=== PATIENT | male | born 1970 | race Caucasian/White ===

== ENCOUNTER 2019-03-17 02:40 | Inpatient (IN) | payer MEDICAID, OTHER ==
[2019-03-17] VITALS (62 sets, daily range): BP systolic 86–129; BP diastolic 39–99
[~2019-03-17] VITALS: Ht 167.6 cm; Wt 61.7 kg
[2019-03-17] MEDS ORDERED: ONDANSETRON HCL 4MG/2ML INJ ONE (03:01)
[2019-03-17] MEDS ORDERED: MORPHINE SULFATE 4 MG/ML CPJ (NOT FOR IM USE) IV STA (03:04)
[2019-03-17] MEDS ORDERED: ONDANSETRON HCL 4MG/2ML INJ IV STA (03:04)
[2019-03-17] MEDS ORDERED: SODIUM CHLORIDE 0.9% 1,000 ML IV ONE ×2 (03:04→04:00)
[2019-03-17 03:27] LABS: BASOPHILS % 0.5 % (0.0-2.0); LYMPHOCYTES % 12.3 % (20.0-50.0); MEAN CORPUSCULAR HEMOGLOBIN 25.3 pg (28.0-32.0); MEAN CORPUSCULAR VOLUME 85.6 fL (80.0-94.0); MEAN PLATELET VOLUME 7.9 fl (7.4-10.4); MONOCYTES % 8.7 % (2.0-8.0); NEUTROPHILS % 78.5 % (40.0-76.0); PLATELET 267 x1000/uL (130-400); RED BLOOD CELL COUNT 1.86 mill/uL (4.7-6.1); RED CELL DISTRIBUTION WIDTH 22.2 % (11.6-14.6)
[2019-03-17 03:32] LABS: HEMATOCRIT. 15.9 % (42.0-52.0); HEMOGLOBIN. 4.7 g/dL (14.0-18.0); INR 1.4; PARTIAL THROMBOPLASTIN TIME 27.5 sec (23.4-31.0); PROTHROMBIN TIME 14.5 sec (9.6-11.0)
[2019-03-17 03:33] LABS: CHLORIDE 91 mEq/L (98-107)
[2019-03-17 03:38] LABS: ETHANOL BLOOD < 10 mg/dL
[2019-03-17 03:57] LABS: CLARITY URINE CLEAR (CLEAR); COLOR URINE YELLOW (YELLOW); KETONES URINE 1+ (NEGATIVE); LEUKOCYTE ESTERASE URINE NEGATIVE (NEGATIVE); NITRITE URINE NEGATIVE (NEGATIVE); OCCULT BLOOD URINE NEGATIVE (NEGATIVE); PROTEIN URINE NEGATIVE (NEGATIVE); SPECIFIC GRAVITY URINE 1.022 (1.005-1.030); UROBILINOGEN URINE 0.2 E.U./dL (0.2-1.0)
[2019-03-17 04:07] LABS: *AMPHETAMINES SCREEN URINE NEGATIVE (NEGATIVE); *BARBITURATES SCREEN URINE NEGATIVE (NEGATIVE); CANNABINOID URINE SCREEN NEGATIVE (NEGATIVE)
[2019-03-17 04:08] LABS: *BENZODIAZEPINES SCREEN URINE NEGATIVE (NEGATIVE); *COCAINE SCREEN URINE NEGATIVE (NEGATIVE); METHADONE URINE SCREEN NEGATIVE (NEGATIVE); OPIATES URINE SCREEN NEGATIVE (NEGATIVE); PHENCYCLIDINE URINE SCREEN NEGATIVE (NEGATIVE)
[2019-03-17] MEDS ORDERED: INSULIN REGULAR (DRIP) 100 UNITS in SODIUM CHLORIDE 0.9% 99 ML IV SCH ×3 (04:15→08:51)
[2019-03-17] MEDS ORDERED: CEFTRIAXONE 1 G PREMIX 50 ML IV ONE (06:30)
[2019-03-17 06:50] LABS: PLATELET ESTIMATE NORMAL
[2019-03-17] MEDS ORDERED: SODIUM CHLORIDE 0.9% 1,000 ML IV SCH (08:51)
[2019-03-17] MEDS ORDERED: GUAIFENESIN 200MG/10ML SUGAR FREE UDC PO PRN (09:00)
[2019-03-17] MEDS ORDERED: LORAZEPAM 2MG/ML CPJ IV PRN (09:00)
[2019-03-17] MEDS ORDERED: ONDANSETRON HCL 4MG/2ML INJ IV PRN (09:00)
[2019-03-17] MEDS ORDERED: MAGNESIUM/ALUMINUM HYDROXIDE/SIMETHICONE 30ML UDC PO PRN (09:00)
[2019-03-17] MEDS ORDERED: CLONIDINE 0.1MG TABLET PO PRN (09:00)
[2019-03-17] MEDS ORDERED: DOCUSATE SODIUM 100MG CAPSULE PO PRN (09:00)
[2019-03-17] MEDS ORDERED: DEXTROSE 50% WATER 50ML SYRINGE IV PRN ×3 (09:00→19:30)
[2019-03-17] MEDS ORDERED: ACETAMINOPHEN 650MG SUPP PR PRN (09:00)
[2019-03-17] MEDS ORDERED: IPRATROPIUM/ALBUTEROL 0.5-3(2.5)MG/3ML NEB HHN PRN (09:00)
[2019-03-17] MEDS ORDERED: METF-414 PO (09:03)
[2019-03-17] MEDS ORDERED: PANT40SU PO (09:03)
[2019-03-17] MEDS ORDERED: FOLI-43 PO (09:03)
[2019-03-17] MEDS ORDERED: PROP10TA10 PO (09:03)
[2019-03-17] MEDS: BLOOD SUGAR DIAGNOSTIC STRIP TEST SCH ×10 (09:30→21:25)
[2019-03-17] MEDS ORDERED: OCTREOTIDE 1,000 MCG in SODIUM CHLORIDE 0.9% 98 ML IV SCH (10:00)
[2019-03-17] MEDS: PANTOPRAZOLE 80 MG in SODIUM CHLORIDE 0.9% 100 ML IV SCH ×2 (10:51→21:40)
[2019-03-17] MEDS ORDERED: MVI, ADULT NO.1 10 ML, FOLIC ACID 1 MG, THIAMINE HCL 100 MG in SODIUM CHLORIDE 0.9% 1,0... IV SCH ×4 (11:00)
[2019-03-17 11:42] LABS: CHLORIDE 105 mEq/L (98-107)
[2019-03-17 11:49] LABS: PHOSPHORUS 1.4 mg/dL (2.5-4.9)
[2019-03-17] MEDS ORDERED: DEXT 5%/0.9% NACL 1,000 ML IV SCH (12:30)
[2019-03-17 12:56] LABS: HEPATITIS B SURFACE ANTIGEN NEGATIVE
[2019-03-17 13:26] LABS: HEPATITIS A AB IGM NEGATIVE (NEGATIVE)
[2019-03-17] MEDS ORDERED: POTASSIUM PHOS,M-BASIC-D-BASIC 30 MMOL in DEXT 5% WATER 500 ML IV NR (14:00)
[2019-03-17] MEDS ORDERED: PHYTONADIONE 10MG/ML AMP SUBCUT NR (15:45)
[2019-03-17] MEDS: SUCRALFATE 1 G/10 ML UDC PO SCH ×2 (17:50→21:33)
[2019-03-17 20:33] LABS: HEMATOCRIT 20.7 % (42.0-52.0); HEMOGLOBIN 6.9 g/dL (14.0-18.0)
[2019-03-17] MEDS: OMEPRAZOLE 20MG CAPSULE EXTENDED RELEASE PO SCH (21:34)
[2019-03-17] MEDS: PROPRANOLOL HCL 10MG TABLET PO SCH (21:35)
[2019-03-17] MEDS: INSULIN LISPRO 100 UNITS/ML SUBCUT SCH (21:36)
[2019-03-17] MEDS: INSULIN GLARGINE UD 100 UNITS/ML SYR SUBCUT SCH (21:37)
[2019-03-18] VITALS (41 sets, daily range): BP systolic 81–127; BP diastolic 44–77
[2019-03-18 02:09] LABS: HEMATOCRIT 24.3 % (42.0-52.0); HEMOGLOBIN 8.3 g/dL (14.0-18.0)
[2019-03-18 05:56] LABS: INR 1.4; PROTHROMBIN TIME 14.3 sec (9.6-11.0)
[2019-03-18 06:00] LABS: CHLORIDE 107 mEq/L (98-107)
[2019-03-18 06:09] LABS: PHOSPHORUS 2.4 mg/dL (2.5-4.9)
[2019-03-18 08:14] LABS: BASOPHILS % 0.4 % (0.0-2.0); EOSINOPHILS % 0.1 % (0.0-5.0); HEMATOCRIT. 24.3 % (42.0-52.0); HEMOGLOBIN. 8.3 g/dL (14.0-18.0); LYMPHOCYTES % 24.5 % (20.0-50.0); MEAN CORPUSCULAR HEMOGLOBIN 28.8 pg (28.0-32.0); MEAN CORPUSCULAR VOLUME 84.6 fL (80.0-94.0); MEAN PLATELET VOLUME 8.4 fl (7.4-10.4); MONOCYTES % 8.1 % (2.0-8.0); NEUTROPHILS % 66.9 % (40.0-76.0); PLATELET 98 x1000/uL (130-400); RED BLOOD CELL COUNT 2.88 mill/uL (4.7-6.1); RED CELL DISTRIBUTION WIDTH 16.4 % (11.6-14.6)
[2019-03-18] MEDS: INSULIN LISPRO 100 UNITS/ML SUBCUT SCH ×7 (08:20→20:28)
[2019-03-18] MEDS: BLOOD SUGAR DIAGNOSTIC STRIP TEST SCH ×4 (08:27→20:28)
[2019-03-18] MEDS: SUCRALFATE 1 G/10 ML UDC PO SCH ×4 (08:33→20:30)
[2019-03-18] MEDS: OMEPRAZOLE 20MG CAPSULE EXTENDED RELEASE PO SCH ×2 (08:33→20:31)
[2019-03-18] MEDS: PANTOPRAZOLE 80 MG in SODIUM CHLORIDE 0.9% 100 ML IV SCH (08:34)
[2019-03-18] MEDS: PROPRANOLOL HCL 10MG TABLET PO SCH ×2 (08:42→20:31)
[2019-03-18] MEDS ORDERED: POTASSIUM PHOS,M-BASIC-D-BASIC 15 MMOL in DEXT 5% WATER 245 ML IV NR (10:00)
[2019-03-18] MEDS: INSULIN GLARGINE UD 100 UNITS/ML SYR SUBCUT SCH (21:59)
[2019-03-19] VITALS (44 sets, daily range): BP systolic 69–139; BP diastolic 37–77
[2019-03-19 06:24] LABS: CHLORIDE 107 mEq/L (98-107)
[2019-03-19 06:52] LABS: INR 1.2; PROTHROMBIN TIME 12.6 sec (9.6-11.0)
[2019-03-19 07:03] LABS: BASOPHILS % 0.8 % (0.0-2.0); EOSINOPHILS % 0.8 % (0.0-5.0); HEMOGLOBIN. 9.1 g/dL (14.0-18.0); LYMPHOCYTES % 20.2 % (20.0-50.0); MEAN CORPUSCULAR VOLUME 86.2 fL (80.0-94.0); MEAN PLATELET VOLUME 8.4 fl (7.4-10.4); MONOCYTES % 11.3 % (2.0-8.0); NEUTROPHILS % 66.9 % (40.0-76.0); PLATELET 142 x1000/uL (130-400); RED BLOOD CELL COUNT 3.13 mill/uL (4.7-6.1)
[2019-03-19] MEDS: OMEPRAZOLE 20MG CAPSULE EXTENDED RELEASE PO SCH (08:47)
[2019-03-19] MEDS: SUCRALFATE 1 G/10 ML UDC PO SCH ×2 (08:47→12:39)
[2019-03-19] MEDS: BLOOD SUGAR DIAGNOSTIC STRIP TEST SCH ×2 (08:47→12:34)
[2019-03-19] MEDS: INSULIN LISPRO 100 UNITS/ML SUBCUT SCH ×4 (08:48→12:40)
[2019-03-19] MEDS: PROPRANOLOL HCL 10MG TABLET PO SCH (08:51)
== END 2019-03-19 14:10 | disposition home or self-care (01) | DRG 280 ==
LOC: ER 02:40 → EDBEDREQ 05:50 → EDBEDREQTM 05:50 → ENRESERV 07:22 → CVICU 08:16
PROVIDERS: ADMIT Internal Medicine; ATTEND Internal Medicine
PROC: 0DJ08ZZ Inspection of Upper Intestinal Tract, Via Natural or Artificial Opening Endoscopic (ICD-10-PCS; principal; 2019-03-17)
PROC: 30233N1 Transfusion of Nonautologous Red Blood Cells into Peripheral Vein, Percutaneous Approach (ICD-10-PCS; 2019-03-17)
DX: K70.30 Alcoholic cirrhosis of liver without ascites (principal); I85.11 Secondary esophageal varices with bleeding; E11.10 Type 2 diabetes mellitus with ketoacidosis without coma; K22.11 Ulcer of esophagus with bleeding; E44.0 Moderate protein-calorie malnutrition; K29.01 Acute gastritis with bleeding; D68.9 Coagulation defect, unspecified; E83.51 Hypocalcemia; D62 Acute posthemorrhagic anemia; E87.1 Hypo-osmolality and hyponatremia; K76.6 Portal hypertension; I10 Essential (primary) hypertension; K31.89 Other diseases of stomach and duodenum; F10.20 Alcohol dependence, uncomplicated; K31.819 Angiodysplasia of stomach and duodenum without bleeding; D50.9 Iron deficiency anemia, unspecified; Z87.19 Personal history of other diseases of the digestive system; Z91.14 Patient's other noncompliance with medication regimen; Z79.84 Long term (current) use of oral hypoglycemic drugs
CPT/HCPCS: 36415; 71045; 76700; 80048; 80076; 80305; 80320; 81003; 82248; 82962; 83036; 83735; 84100; 85014; 85018; 86705; 86709; 86803; 86850; 86900; 86920; 87340; 93970; 96365; 99291; C9113; J0696; J1815; J2270; J2354; J2405; J3411; J3430; J3490; J7030; J7042; J7050; J7060; J7620; P9016; G0480

== ENCOUNTER 2023-11-01 16:21 | Inpatient (IN) | payer MEDICAID ==
[~2023-11-01] VITALS: Ht 154.9 cm; Wt 72.1 kg
[~2023-11-01 16:21] MED LIST: FOLI-43 PO; FURO80TA87 MT; METF-414 PO; PANT40SU PO; SPIR50TA5 MT
[2023-11-01] MEDS ORDERED: PANTOPRAZOLE 80 MG in SODIUM CHLORIDE 0.9% 100 ML IV SCH (17:15)
[2023-11-01 17:50] LABS: BASOPHILS % 0.3 % (0.0-2.0); EOSINOPHILS % 0.4 % (0.0-5.0); LYMPHOCYTES % 22.2 % (20.0-50.0); MEAN CORPUSCULAR HEMOGLOBIN 29.9 pg (28.0-32.0); MEAN CORPUSCULAR HGB CONC 33.1 g/dL (31.0-37.0); MEAN CORPUSCULAR VOLUME 90.6 fL (80.0-94.0); MEAN PLATELET VOLUME 8.8 fl (7.4-10.4); MONOCYTES % 8.4 % (2.0-8.0); NEUTROPHILS % 68.7 % (40.0-76.0); PLATELET 153 x1000/uL (130-400); RED BLOOD CELL COUNT 1.09 mill/uL (4.7-6.1); RED CELL DISTRIBUTION WIDTH 26.4 % (11.6-14.6); WHITE BLOOD COUNT 6.5 x1000/uL (4.5-11.0)
[2023-11-01 17:52] LABS: CHLORIDE 102 mEq/L (98-107); SODIUM 131 mEq/L (136-145)
[2023-11-01 17:53] LABS: CARBON DIOXIDE 20 mEq/L (21-32)
[2023-11-01 17:54] LABS: CALCIUM 7.5 mg/dL (8.7-10.4)
[2023-11-01 17:55] LABS: ADD RBC MORPHOLOGY YES; DIFFERENTIAL COMMENT 1; HEMATOCRIT. 9.8 % (42.0-52.0); HEMOGLOBIN. 3.2 g/dL (14.0-18.0); POTASSIUM 2.8 mEq/L (3.5-5.1)
[2023-11-01 17:58] LABS: CREATININE 1.1 mg/dL (0.6-1.3)
[2023-11-01 17:59] LABS: ETHANOL BLOOD 32 mg/dL (<10); GLUCOSE 161 mg/dL (70-105); UREA NITROGEN BLOOD 46 mg/dL (9-23)
[2023-11-01 18:00] LABS: ALANINE AMINOTRANSFERASE 45 IU/L (10-49); ALBUMIN 2.1 g/dL (3.2-4.8); ASPARTATE AMINOTRANSFERASE 136 IU/L (<34); INR 1.6; PROTHROMBIN TIME 16.9 sec (9.6-11.0)
[2023-11-01 18:01] LABS: BILIRUBIN DIRECT 0.7 mg/dL (<=3.0); BILIRUBIN TOTAL 1.3 mg/dL (0.1-1.0)
[2023-11-01 18:02] LABS: PROTEIN TOTAL 4.7 g/dL (6.0-8.3); TROPONIN I HIGH SENSITIVITY < 4 ng/L (3.0-53)
[2023-11-01 18:05] LABS: LACTIC ACID 7.1 mmol/L (0.4-2.0)
[2023-11-01 18:17] LABS: ANISOCYTOSIS 3+; PLATELET ESTIMATE NORMAL
[2023-11-01] MEDS: PANTOPRAZOLE SODIUM 40 MG/VIAL IV ONE (18:37)
[2023-11-01] MEDS: PANTOPRAZOLE 80 MG in SODIUM CHLORIDE 0.9% 100 ML IV SCH (18:37)
[2023-11-01] MEDS: CEFTRIAXONE 1GM/50ML 50 ML IV ONE (18:38)
[2023-11-01] MEDS ORDERED: OCTREOTIDE 1,000 MCG in SODIUM CHLORIDE 0.9% 100 ML IV ONE (20:30)
[2023-11-01] MEDS: KCL 20MEQ/100ML PREMIX 100 ML IV STA (21:30)
[2023-11-01] MEDS: OCTREOTIDE 1,000 MCG in SODIUM CHLORIDE 0.9% 98 ML IV ONE (22:05)
[2023-11-01 22:17] LABS: TROPONIN I HIGH SENSITIVITY < 4 ng/L (3.0-53)
[2023-11-01] MEDS ORDERED: MAGNESIUM/ALUMINUM HYDROXIDE/SIMETHICONE 30ML UDC PO PRN (22:30)
[2023-11-01] MEDS ORDERED: HYDROCODONE/ACETAMINOPHEN 5/325MG TABLET PO PRN (22:30)
[2023-11-01] MEDS ORDERED: DOCUSATE SODIUM 100MG CAPSULE PO PRN (22:30)
[2023-11-01] MEDS ORDERED: ACETAMINOPHEN 325MG TABLET PO PRN (22:30)
[2023-11-01] MEDS ORDERED: ONDANSETRON HCL 4MG/2ML INJ IV PRN (22:30)
[2023-11-01] MEDS ORDERED: NALOXONE HCL 0.4MG/ML VIAL IV PRN (22:30)
[2023-11-01] MEDS ORDERED: CLONIDINE 0.1MG TABLET PO PRN (22:30)
[2023-11-01 23:03] LABS: CHLORIDE 103 mEq/L (98-107); SODIUM 132 mEq/L (136-145)
[2023-11-01 23:04] LABS: CALCIUM 7.5 mg/dL (8.7-10.4); CARBON DIOXIDE 20 mEq/L (21-32)
[2023-11-01 23:09] LABS: CREATININE 1.2 mg/dL (0.6-1.3); GLUCOSE 133 mg/dL (70-105); UREA NITROGEN BLOOD 42 mg/dL (9-23)
[2023-11-01 23:11] LABS: ALANINE AMINOTRANSFERASE 78 IU/L (10-49); ALBUMIN 2.1 g/dL (3.2-4.8); ASPARTATE AMINOTRANSFERASE 264 IU/L (<34); BILIRUBIN TOTAL 1.2 mg/dL (0.1-1.0); PROTEIN TOTAL 4.8 g/dL (6.0-8.3)
[2023-11-01 23:43] LABS: CLARITY URINE CLEAR (CLEAR); COLOR URINE DARK YELLOW (YELLOW); GLUCOSE URINE NEGATIVE (NEGATIVE); KETONES URINE TRACE (NEGATIVE); LEUKOCYTE ESTERASE URINE TRACE (NEGATIVE); NITRITE URINE NEGATIVE (NEGATIVE); OCCULT BLOOD URINE NEGATIVE (NEGATIVE); PH URINE 5.5 (4.5-8.0); PROTEIN URINE NEGATIVE (NEGATIVE); SPECIFIC GRAVITY URINE 1.015 (1.005-1.030)
[2023-11-01 23:48] LABS: *AMPHETAMINES SCREEN URINE NEGATIVE (NEGATIVE); *BENZODIAZEPINES SCREEN URINE NEGATIVE (NEGATIVE)
[2023-11-01 23:49] LABS: *BARBITURATES SCREEN URINE NEGATIVE (NEGATIVE); *COCAINE SCREEN URINE NEGATIVE (NEGATIVE); CANNABINOID URINE SCREEN NEGATIVE (NEGATIVE); ECSTASY MDMA SCREEN URINE NEGATIVE (NEGATIVE); METHADONE URINE SCREEN NEGATIVE (NEGATIVE); OPIATES URINE SCREEN NEGATIVE (NEGATIVE); PHENCYCLIDINE URINE SCREEN NEGATIVE (NEGATIVE)
[2023-11-02] VITALS (33 sets, daily range): BP systolic 96–127; BP diastolic 18–89; PULSE 69–82; RESP 9–21; TEMP 97.5–97.8
[2023-11-02 00:04] LABS: SQUAMOUS EPITHELIAL CELL URINE 2+ /lpf (RARE/1+); WBC URINE 0-2 /hpf (0-2)
[2023-11-02 00:05] LABS: BACTERIA URINE 1+; HYALINE CASTS URINE TNTC /lpf
[2023-11-02 06:16] LABS: BASOPHILS % 0.4 % (0.0-2.0); DIFFERENTIAL COMMENT 0; EOSINOPHILS % 0.5 % (0.0-5.0); LYMPHOCYTES % 18.5 % (20.0-50.0); MEAN CORPUSCULAR HEMOGLOBIN 30.3 pg (28.0-32.0); MEAN CORPUSCULAR HGB CONC 34.2 g/dL (31.0-37.0); MEAN CORPUSCULAR VOLUME 88.6 fL (80.0-94.0); MEAN PLATELET VOLUME 8.4 fl (7.4-10.4); MONOCYTES % 9.3 % (2.0-8.0); NEUTROPHILS % 71.3 % (40.0-76.0); PLATELET 119 x1000/uL (130-400); RED BLOOD CELL COUNT 2.11 mill/uL (4.7-6.1); RED CELL DISTRIBUTION WIDTH 19.2 % (11.6-14.6); WHITE BLOOD COUNT 5.6 x1000/uL (4.5-11.0)
[2023-11-02 06:27] LABS: AMMONIA 63 uMol/L (<32)
[2023-11-02 06:34] LABS: HEMOGLOBIN. 6.4 g/dL (14.0-18.0)
[2023-11-02 06:35] LABS: CHLORIDE 102 mEq/L (98-107); POTASSIUM 3.5 mEq/L (3.5-5.1); SODIUM 135 mEq/L (136-145)
[2023-11-02 06:35] LABS: HEMATOCRIT. 18.7 % (42.0-52.0)
[2023-11-02 06:36] LABS: CALCIUM 7.5 mg/dL (8.7-10.4); CARBON DIOXIDE 25 mEq/L (21-32)
[2023-11-02 06:41] LABS: CREATININE 1.1 mg/dL (0.6-1.3); GLUCOSE 149 mg/dL (70-105)
[2023-11-02 06:42] LABS: LDL CHOLESTEROL 23 mg/dL (5-100); TRIGLYCERIDE 73 mg/dL (0-150); UREA NITROGEN BLOOD 47 mg/dL (9-23)
[2023-11-02 06:43] LABS: ALANINE AMINOTRANSFERASE 110 IU/L (10-49); ALBUMIN 2.3 g/dL (3.2-4.8); ASPARTATE AMINOTRANSFERASE 462 IU/L (<34); BILIRUBIN DIRECT 1.6 mg/dL (<=3.0); CHOLESTEROL 71 mg/dL (<200); HDL CHOLESTEROL 21 mg/dL (>55); PHOSPHORUS 2.7 mg/dL (2.5-4.9)
[2023-11-02 06:45] LABS: T4 FREE 0.94 ng/dL (0.89-1.76); THYROID STIMULATING HORMONE 0.91 uIU/mL (0.55-4.78)
[2023-11-02 07:11] LABS: BILIRUBIN TOTAL 2.8 mg/dL (0.1-1.0); TROPONIN I HIGH SENSITIVITY < 4 ng/L (3.0-53)
[2023-11-02] MEDS: PANTOPRAZOLE SODIUM 40 MG/VIAL IV SCH (09:30)
[2023-11-02] MEDS ORDERED: LIDOCAINE HCL/EPINEPHRINE 1%-EPI 1:100,000 10 ML VIAL INFIL NR (10:00)
[2023-11-02] MEDS: LIDOCAINE HCL/EPINEPHRINE 1%-EPI 1:100,000 20 ML VIAL INFIL NR (10:38)
[2023-11-02 11:22] LABS: HEMATOCRIT 19.3 % (42.0-52.0); HEMOGLOBIN 6.5 g/dL (14.0-18.0)
[2023-11-02] MEDS: LACTULOSE 20G/30ML UDC PO SCH (14:11)
[2023-11-02] MEDS: RIFAXIMIN 550 MG TABLET PO SCH (14:11)
[2023-11-02] MEDS: PHYTONADIONE 10MG/ML INJ SUBCUT SCH (14:12)
[2023-11-02] MEDS ORDERED: OCTREOTIDE 1,000 MCG in SODIUM CHLORIDE 0.9% 100 ML IV SCH (17:30)
[2023-11-02] MEDS: OCTREOTIDE 1,000 MCG in SODIUM CHLORIDE 0.9% 98 ML IV SCH (18:08)
[2023-11-02 19:04] LABS: HEMATOCRIT 25.7 % (42.0-52.0); HEMOGLOBIN 8.7 g/dL (14.0-18.0)
[2023-11-02 19:36] LABS: HEPATITIS B SURFACE ANTIGEN NEGATIVE (Negative)
[2023-11-02 19:57] LABS: HEPATITIS C AB NON REACTIVE (Neg) (Negative)
[2023-11-03] VITALS (46 sets, daily range): BP systolic 98–137; BP diastolic 66–94; PULSE 68–95; RESP 9–23; TEMP 97–98.6
[2023-11-03 01:18] LABS: HEMATOCRIT 23.7 % (42.0-52.0); HEMOGLOBIN 8.2 g/dL (14.0-18.0)
[2023-11-03 05:44] LABS: BASOPHILS % 0.3 % (0.0-2.0); EOSINOPHILS % 2.3 % (0.0-5.0); HEMATOCRIT. 24.9 % (42.0-52.0); HEMOGLOBIN. 8.5 g/dL (14.0-18.0); LYMPHOCYTES % 23.8 % (20.0-50.0); MEAN CORPUSCULAR HEMOGLOBIN 31.1 pg (28.0-32.0); MEAN CORPUSCULAR HGB CONC 34.3 g/dL (31.0-37.0); MEAN CORPUSCULAR VOLUME 90.5 fL (80.0-94.0); MEAN PLATELET VOLUME 8.4 fl (7.4-10.4); MONOCYTES % 12.8 % (2.0-8.0); NEUTROPHILS % 60.8 % (40.0-76.0); PLATELET 91 x1000/uL (130-400); RED BLOOD CELL COUNT 2.75 mill/uL (4.7-6.1); RED CELL DISTRIBUTION WIDTH 16.5 % (11.6-14.6); WHITE BLOOD COUNT 2.9 x1000/uL (4.5-11.0)
[2023-11-03 05:51] LABS: CARBON DIOXIDE 26 mEq/L (21-32); CHLORIDE 104 mEq/L (98-107); POTASSIUM 3.2 mEq/L (3.5-5.1); SODIUM 137 mEq/L (136-145)
[2023-11-03 05:52] LABS: CALCIUM 7.9 mg/dL (8.7-10.4)
[2023-11-03 05:56] LABS: ADD RBC MORPHOLOGY YES; DIFFERENTIAL COMMENT 1; INR 1.3; PROTHROMBIN TIME 14.6 sec (9.6-11.0)
[2023-11-03 05:57] LABS: CREATININE 0.9 mg/dL (0.6-1.3); GLUCOSE 158 mg/dL (70-105); UREA NITROGEN BLOOD 35 mg/dL (9-23)
[2023-11-03 05:59] LABS: ALANINE AMINOTRANSFERASE 174 IU/L (10-49); ALBUMIN 2.3 g/dL (3.2-4.8); ASPARTATE AMINOTRANSFERASE 460 IU/L (<34); BILIRUBIN DIRECT 2.4 mg/dL (<=3.0); PHOSPHORUS 2.7 mg/dL (2.5-4.9); PROTEIN TOTAL 5.3 g/dL (6.0-8.3)
[2023-11-03 06:02] LABS: BILIRUBIN TOTAL 4.3 mg/dL (0.1-1.0)
[2023-11-03] MEDS: KCL 20MEQ/100ML PREMIX 100 ML IV SCH (07:36)
[2023-11-03] MEDS ORDERED: LIDOCAINE HCL 1% 10 MG/ML 10ML VIAL ONE (10:23)
[2023-11-03] MEDS ORDERED: PROPOFOL 200MG/20ML VIAL IV ONE (10:23)
[2023-11-03] MEDS ORDERED: ONDANSETRON HCL 4MG/2ML INJ IV PRN (10:45)
[2023-11-03] MEDS ORDERED: LABETALOL 5MG/ML 4ML INJ IV PRN (10:45)
[2023-11-03] MEDS ORDERED: HYDROMORPHONE HCL/PF 2MG/ML CPJ IV PRN (10:45)
[2023-11-03] MEDS ORDERED: MEPERIDINE HCL/PF 25MG/ML CPJ IV PRN (10:45)
[2023-11-03 16:54] LABS: CARBON DIOXIDE 26 mEq/L (21-32); CHLORIDE 107 mEq/L (98-107); POTASSIUM 3.5 mEq/L (3.5-5.1); SODIUM 137 mEq/L (136-145)
[2023-11-03 16:55] LABS: CALCIUM 7.6 mg/dL (8.7-10.4)
[2023-11-03 16:57] LABS: HEMATOCRIT. 23.8 % (42.0-52.0); HEMOGLOBIN 8.1 g/dL (14.0-18.0); HEMOGLOBIN. 8.1 g/dL (14.0-18.0); MEAN CORPUSCULAR HEMOGLOBIN 30.7 pg (28.0-32.0); MEAN CORPUSCULAR HGB CONC 33.8 g/dL (31.0-37.0); MEAN CORPUSCULAR VOLUME 90.7 fL (80.0-94.0); MEAN PLATELET VOLUME 8.3 fl (7.4-10.4); PLATELET 88 x1000/uL (130-400); RED BLOOD CELL COUNT 2.63 mill/uL (4.7-6.1)
[2023-11-03 16:59] LABS: DIFFERENTIAL COMMENT 1
[2023-11-03 17:00] LABS: CREATININE 0.9 mg/dL (0.6-1.3); GLUCOSE 123 mg/dL (70-105); UREA NITROGEN BLOOD 28 mg/dL (9-23)
[2023-11-03 17:01] LABS: ALANINE AMINOTRANSFERASE 147 IU/L (10-49); ALBUMIN 2.2 g/dL (3.2-4.8); ASPARTATE AMINOTRANSFERASE 329 IU/L (<34)
[2023-11-03 17:02] LABS: BILIRUBIN TOTAL 3.4 mg/dL (0.1-1.0)
[2023-11-03 17:03] LABS: PROTEIN TOTAL 5.2 g/dL (6.0-8.3)
[2023-11-03 17:10] LABS: ANISOCYTOSIS 1+; PLATELET ESTIMATE DECREASED
[2023-11-03] MEDS: ALBUMIN HUMAN 25GM/100ML (25%) IV SCH (17:40)
[2023-11-03 17:54] LABS: ANISOCYTOSIS 1+; NUCLEATED RED BLOOD CELLS 2 /100 WBC; PLATELET ESTIMATE DECREASED
[2023-11-04] VITALS (43 sets, daily range): BP systolic 93–151; BP diastolic 37–97; PULSE 59–87; RESP 6–21; TEMP 97–98.3
[2023-11-04 06:53] LABS: HEMATOCRIT. 23.6 % (42.0-52.0); HEMOGLOBIN. 8.1 g/dL (14.0-18.0); MEAN CORPUSCULAR HEMOGLOBIN 31.1 pg (28.0-32.0); MEAN CORPUSCULAR HGB CONC 34.5 g/dL (31.0-37.0); MEAN CORPUSCULAR VOLUME 90.2 fL (80.0-94.0); MEAN PLATELET VOLUME 8.1 fl (7.4-10.4); PLATELET 77 x1000/uL (130-400); RED BLOOD CELL COUNT 2.61 mill/uL (4.7-6.1); RED CELL DISTRIBUTION WIDTH 17.4 % (11.6-14.6); WHITE BLOOD COUNT 2.5 x1000/uL (4.5-11.0)
[2023-11-04 06:55] LABS: INR 1.3; PROTHROMBIN TIME 14.6 sec (9.6-11.0)
[2023-11-04 06:58] LABS: DIFFERENTIAL COMMENT 1
[2023-11-04 07:03] LABS: CALCIUM 8.2 mg/dL (8.7-10.4); CARBON DIOXIDE 27 mEq/L (21-32); CHLORIDE 107 mEq/L (98-107); POTASSIUM 3.6 mEq/L (3.5-5.1); SODIUM 140 mEq/L (136-145)
[2023-11-04 07:09] LABS: GLUCOSE 108 mg/dL (70-105); UREA NITROGEN BLOOD 23 mg/dL (9-23)
[2023-11-04 07:39] LABS: CREATININE 0.9 mg/dL (0.6-1.3)
[2023-11-04 11:52] LABS: BODY FLUID MONOCYTES 7 %
[2023-11-04 11:59] LABS: BODY FLUID RBC 84 /cu mm (0-2000); BODY FLUID WBC 24 /cu mm (0-200)
[2023-11-04] MEDS: MAGNESIUM 2 G PREMIX 50 ML IV NR (17:16)
[2023-11-04] MEDS: LACTULOSE 20G/30ML UDC PO SCH (21:05)
[2023-11-04 21:40] LABS: ANISOCYTOSIS 1+; PLATELET ESTIMATE DECREASED
[2023-11-05] VITALS: BP 103/60; PULSE 78; RESP 19; TEMP 98.7
[2023-11-05 04:00] VITALS: BP 92/53; PULSE 77; RESP 18; TEMP 99.1
[2023-11-05] MEDS: SODIUM BICARBONATE 4% (2.4MEQ) 5ML VIAL IV ONE (05:07)
[2023-11-05] MEDS: LIDOCAINE HCL 1% 10 MG/ML 10ML VIAL ONE (05:07)
[2023-11-05 05:58] LABS: AMMONIA 28 uMol/L (<32)
[2023-11-05 06:03] LABS: HEMATOCRIT. 24.6 % (42.0-52.0); HEMOGLOBIN. 8.3 g/dL (14.0-18.0); MEAN CORPUSCULAR HEMOGLOBIN 30.8 pg (28.0-32.0); MEAN CORPUSCULAR HGB CONC 33.8 g/dL (31.0-37.0); MEAN CORPUSCULAR VOLUME 91.1 fL (80.0-94.0); MEAN PLATELET VOLUME 8.1 fl (7.4-10.4); PLATELET 79 x1000/uL (130-400); RED CELL DISTRIBUTION WIDTH 17.5 % (11.6-14.6); WHITE BLOOD COUNT 3.4 x1000/uL (4.5-11.0)
[2023-11-05 06:16] LABS: BILIRUBIN DIRECT 1.7 mg/dL (<=3.0)
[2023-11-05 06:17] LABS: ALANINE AMINOTRANSFERASE 60 IU/L (10-49); ASPARTATE AMINOTRANSFERASE 84 IU/L (<34); BILIRUBIN TOTAL 2.9 mg/dL (0.1-1.0); PROTEIN TOTAL 5.2 g/dL (6.0-8.3)
[2023-11-05 06:29] LABS: DIFFERENTIAL COMMENT 1
[2023-11-05 08:00] VITALS: BP 91/46; PULSE 83; RESP 20; TEMP 98.8
[2023-11-05 12:00] VITALS: BP 93/58; PULSE 89; RESP 20; TEMP 97.9
[2023-11-05 14:11] LABS: ANISOCYTOSIS 1+; PLATELET ESTIMATE DECREASED
[2023-11-05 16:00] VITALS: BP 102/58; PULSE 73; RESP 18; TEMP 97.9
[2023-11-06] VITALS: BP 107/72; PULSE 77; RESP 18; TEMP 98
[2023-11-06] MEDS: LORAZEPAM 2MG/ML INJ IV PRN (01:34)
[2023-11-06 04:00] VITALS: BP 99/72; PULSE 72; RESP 18; TEMP 98
[2023-11-06 06:28] LABS: HEMATOCRIT. 23.8 % (42.0-52.0); HEMOGLOBIN. 8.1 g/dL (14.0-18.0); MEAN CORPUSCULAR HEMOGLOBIN 30.6 pg (28.0-32.0); MEAN CORPUSCULAR VOLUME 90.2 fL (80.0-94.0); MEAN PLATELET VOLUME 8.2 fl (7.4-10.4); PLATELET 71 x1000/uL (130-400); RED BLOOD CELL COUNT 2.63 mill/uL (4.7-6.1); RED CELL DISTRIBUTION WIDTH 17.8 % (11.6-14.6); WHITE BLOOD COUNT 3.3 x1000/uL (4.5-11.0)
[2023-11-06 06:33] LABS: AMMONIA 64 uMol/L (<32)
[2023-11-06 06:45] LABS: ALANINE AMINOTRANSFERASE 46 IU/L (10-49); ALBUMIN 2.5 g/dL (3.2-4.8); ASPARTATE AMINOTRANSFERASE 52 IU/L (<34); BILIRUBIN DIRECT 1.7 mg/dL (<=3.0); BILIRUBIN TOTAL 2.6 mg/dL (0.1-1.0); PROTEIN TOTAL 4.9 g/dL (6.0-8.3)
[2023-11-06 07:11] LABS: DIFFERENTIAL COMMENT 1
[2023-11-06 08:00] VITALS: BP 101/60; PULSE 77; RESP 20; TEMP 98.7
[2023-11-06 10:53] LABS: ANISOCYTOSIS 1+
[2023-11-06 10:54] LABS: PLATELET ESTIMATE DECREASED
[2023-11-06 12:12] VITALS: BP 99/57; PULSE 75; RESP 18; TEMP 97.6
[2023-11-06] MEDS: LACTULOSE 20G/30ML UDC PO SCH (15:52)
[2023-11-06 16:00] VITALS: BP 105/62; PULSE 80; RESP 20; TEMP 98.9
[2023-11-06 20:00] VITALS: BP 99/56; PULSE 77; RESP 20; TEMP 98
[2023-11-07] VITALS: BP 101/57; PULSE 72; RESP 19; TEMP 98
[2023-11-07 04:00] VITALS: BP 99/72; PULSE 72; RESP 18; TEMP 98
[2023-11-07 06:21] LABS: AMMONIA 38 uMol/L (<32)
[2023-11-07 06:25] LABS: HEMATOCRIT. 23.9 % (42.0-52.0); MEAN CORPUSCULAR HEMOGLOBIN 30.7 pg (28.0-32.0); MEAN CORPUSCULAR HGB CONC 33.5 g/dL (31.0-37.0); MEAN CORPUSCULAR VOLUME 91.6 fL (80.0-94.0); MEAN PLATELET VOLUME 8.4 fl (7.4-10.4); PLATELET 69 x1000/uL (130-400); RED BLOOD CELL COUNT 2.61 mill/uL (4.7-6.1); RED CELL DISTRIBUTION WIDTH 17.8 % (11.6-14.6); WHITE BLOOD COUNT 2.8 x1000/uL (4.5-11.0)
[2023-11-07 06:28] LABS: ALANINE AMINOTRANSFERASE 42 IU/L (10-49); ALBUMIN 2.6 g/dL (3.2-4.8); ASPARTATE AMINOTRANSFERASE 53 IU/L (<34); BILIRUBIN DIRECT 1.1 mg/dL (<=3.0)
[2023-11-07 06:29] LABS: BILIRUBIN TOTAL 1.9 mg/dL (0.1-1.0); PROTEIN TOTAL 5.3 g/dL (6.0-8.3)
[2023-11-07 07:19] LABS: DIFFERENTIAL COMMENT 1
[2023-11-07 08:00] VITALS: BP 96/56; PULSE 88; RESP 18; TEMP 97.9
[2023-11-07 09:45] LABS: PLATELET ESTIMATE MARKEDLY DECREASED
[2023-11-07 09:46] LABS: ANISOCYTOSIS 1+; HYPOCHROMASIA 1+
[2023-11-07 12:00] VITALS: BP 98/62; PULSE 82; RESP 18; TEMP 97.7
[2023-11-07 16:00] VITALS: BP 129/74; PULSE 80; RESP 18; TEMP 97
[2023-11-07 20:00] VITALS: BP 138/76; PULSE 80; RESP 20; TEMP 99
[2023-11-07 22:16] LABS: TROPONIN I HIGH SENSITIVITY < 4 ng/L (3.0-53)
[2023-11-08] VITALS: BP 108/63; PULSE 85; RESP 18; TEMP 99.5
[2023-11-08 04:00] VITALS: BP 97/63; PULSE 88; RESP 20; TEMP 98.6
[2023-11-08] MEDS: HYDROCODONE/ACETAMINOPHEN 5/325MG TABLET PO PRN (04:00)
[2023-11-08 06:15] LABS: AMMONIA 18 uMol/L (<32)
[2023-11-08 07:12] LABS: CHLORIDE 104 mEq/L (98-107); POTASSIUM 4.5 mEq/L (3.5-5.1); SODIUM 133 mEq/L (136-145)
[2023-11-08 07:14] LABS: CARBON DIOXIDE 25 mEq/L (21-32)
[2023-11-08 07:15] LABS: CALCIUM 8.1 mg/dL (8.7-10.4)
[2023-11-08 07:20] LABS: CREATININE 0.8 mg/dL (0.6-1.3); UREA NITROGEN BLOOD 10 mg/dL (9-23)
[2023-11-08 07:22] LABS: ALANINE AMINOTRANSFERASE 47 IU/L (10-49); ALBUMIN 2.8 g/dL (3.2-4.8); ASPARTATE AMINOTRANSFERASE 62 IU/L (<34); BILIRUBIN DIRECT 1.2 mg/dL (<=3.0); BILIRUBIN TOTAL 2.1 mg/dL (0.1-1.0); GLUCOSE 330 mg/dL (70-105); PROTEIN TOTAL 5.5 g/dL (6.0-8.3)
[2023-11-08 07:29] LABS: TROPONIN I HIGH SENSITIVITY < 4 ng/L (3.0-53)
[2023-11-08 07:32] LABS: HEMATOCRIT. 24.2 % (42.0-52.0); MEAN CORPUSCULAR HEMOGLOBIN 30.5 pg (28.0-32.0); MEAN CORPUSCULAR HGB CONC 32.9 g/dL (31.0-37.0); MEAN CORPUSCULAR VOLUME 92.6 fL (80.0-94.0); MEAN PLATELET VOLUME 9.5 fl (7.4-10.4); PLATELET 79 x1000/uL (130-400); RED BLOOD CELL COUNT 2.62 mill/uL (4.7-6.1); RED CELL DISTRIBUTION WIDTH 17.5 % (11.6-14.6); WHITE BLOOD COUNT 3.3 x1000/uL (4.5-11.0)
[2023-11-08 07:40] LABS: DIFFERENTIAL COMMENT 1
[2023-11-08 08:00] VITALS: BP 107/53; PULSE 73; RESP 16; TEMP 98
[2023-11-08 10:26] LABS: INR 1.2; PROTHROMBIN TIME 13.2 sec (9.6-11.0)
[2023-11-08 12:00] VITALS: BP 109/56; PULSE 77; RESP 16; TEMP 98.1
[2023-11-08] MEDS: ALBUMIN HUMAN 25GM/100ML (25%) IV SCH (13:57)
[2023-11-08 16:00] VITALS: BP 100/56; PULSE 84; RESP 19; TEMP 98
[2023-11-08 17:37] LABS: PLATELET ESTIMATE DECREASED
[2023-11-08 17:38] LABS: ANISOCYTOSIS 1+
[2023-11-08 20:26] VITALS: BP 116/72; PULSE 83; RESP 20; TEMP 97.8
[2023-11-09 00:45] VITALS: BP 112/65; PULSE 91; RESP 20; TEMP 98.2
[2023-11-09 04:00] VITALS: BP 105/66; PULSE 83; RESP 19; TEMP 98.4
[2023-11-09 07:05] LABS: INR 1.2; PROTHROMBIN TIME 13.7 sec (9.6-11.0)
[2023-11-09 07:08] LABS: HEMATOCRIT. 21.5 % (42.0-52.0); HEMOGLOBIN. 7.1 g/dL (14.0-18.0); MEAN CORPUSCULAR HEMOGLOBIN 30.2 pg (28.0-32.0); MEAN CORPUSCULAR HGB CONC 33.1 g/dL (31.0-37.0); MEAN CORPUSCULAR VOLUME 91.4 fL (80.0-94.0); PLATELET 68 x1000/uL (130-400); RED BLOOD CELL COUNT 2.36 mill/uL (4.7-6.1); RED CELL DISTRIBUTION WIDTH 17.2 % (11.6-14.6); WHITE BLOOD COUNT 2.4 x1000/uL (4.5-11.0)
[2023-11-09 07:10] LABS: AMMONIA 44 uMol/L (<32); CARBON DIOXIDE 24 mEq/L (21-32); CHLORIDE 104 mEq/L (98-107); POTASSIUM 4.3 mEq/L (3.5-5.1); SODIUM 134 mEq/L (136-145)
[2023-11-09 07:11] LABS: CALCIUM 8.1 mg/dL (8.7-10.4)
[2023-11-09 07:16] LABS: CREATININE 0.8 mg/dL (0.6-1.3); GLUCOSE 305 mg/dL (70-105); UREA NITROGEN BLOOD 9 mg/dL (9-23)
[2023-11-09 07:22] LABS: DIFFERENTIAL COMMENT 1
[2023-11-09 08:00] VITALS: BP 110/68; PULSE 88; RESP 18; TEMP 98.7
[2023-11-09] MEDS ORDERED: SODIUM BICARBONATE 4% (2.4MEQ) 5ML VIAL IV ONE (08:07)
[2023-11-09] MEDS ORDERED: LIDOCAINE HCL 1% 10 MG/ML 10ML VIAL ONE (08:08)
[2023-11-09 12:14] VITALS: BP 109/62; PULSE 81; RESP 20; TEMP 98.7
[2023-11-09] MEDS ORDERED: LACT10SO7 MT (12:16)
[2023-11-09] MEDS ORDERED: CARV3.1242 MT (12:16)
[2023-11-09 16:00] VITALS: BP_SYST 106; BP_SYST 109; BP_DIAS 62; BP_DIAS 65; PULSE 81; PULSE 84; RESP 20; TEMP 98.5; TEMP 98.7; O2SAT 98
[2023-11-09 17:03] LABS: PLATELET ESTIMATE DECREASED
== END 2023-11-09 18:06 | disposition home or self-care (01) | DRG 280 ==
LOC: ER 16:21 → MICUSO 19:39 → EDBEDREQTM 19:49 → EDBEDREQ 19:49 → EDBEDREQSVC 11-02 02:36 → MICUSO 11-04 18:54 → 7WST 11-04 23:45
PROVIDERS: ADMIT Family Medicine Adult Medicine; ATTEND Family Medicine Adult Medicine
PROC: 30233N1 Transfusion of Nonautologous Red Blood Cells into Peripheral Vein, Percutaneous Approach (ICD-10-PCS; 2023-11-02)
PROC: 30233K1 Transfusion of Nonautologous Frozen Plasma into Peripheral Vein, Percutaneous Approach (ICD-10-PCS; 2023-11-02)
PROC: 06L38CZ Occlusion of Esophageal Vein with Extraluminal Device, Via Natural or Artificial Opening Endoscopic (ICD-10-PCS; principal; 2023-11-03)
PROC: 0DB78ZX Excision of Stomach, Pylorus, Via Natural or Artificial Opening Endoscopic, Diagnostic (ICD-10-PCS; 2023-11-03)
DX: K70.31 Alcoholic cirrhosis of liver with ascites (principal); R57.8 Other shock; I85.11 Secondary esophageal varices with bleeding; K29.71 Gastritis, unspecified, with bleeding; D68.9 Coagulation defect, unspecified; D69.6 Thrombocytopenia, unspecified; E87.20 Acidosis, unspecified; E88.09 Other disorders of plasma-protein metabolism, not elsewhere classified; K76.82 Hepatic encephalopathy; D64.9 Anemia, unspecified; E11.9 Type 2 diabetes mellitus without complications; E87.6 Hypokalemia; K76.6 Portal hypertension; K31.89 Other diseases of stomach and duodenum; F10.229 Alcohol dependence with intoxication, unspecified; Y90.1 Blood alcohol level of 20-39 mg/100 ml; Z79.84 Long term (current) use of oral hypoglycemic drugs; Z79.899 Other long term (current) drug therapy
CPT/HCPCS: 36415; 49083; 71045; 74176; 80048; 80053; 80061; 80076; 80305; 80320; 81003; 82040; 82140; 83605; 83615; 83735; 84100; 84439; 84443; 84484; 85014; 85018; 85025; 86705; 86850; 86900; 86920; 86927; 87340; 88305; 93005; 93970; 97161; 99291; A6261; C9113; J0696; J2060; J2354; J2704; J3430; J3475; J3480; J3490; J7050; P9016; P9017; P9047; G0480

== ENCOUNTER 2023-11-12 08:53 | Emergency (ER) | payer MEDICAID ==
[~2023-11-12] VITALS: Ht 167.6 cm; Wt 77.1 kg
[~2023-11-12 08:53] MED LIST changes: +CARV3.1242 MT; +LACT10SO7 MT
[2023-11-12 09:00] VITALS: O2SAT 100
[2023-11-12 09:17] LABS: BASOPHILS % 0.9 % (0.0-2.0); EOSINOPHILS % 1.2 % (0.0-5.0); HEMATOCRIT. 25.9 % (42.0-52.0); HEMOGLOBIN. 8.6 g/dL (14.0-18.0); LYMPHOCYTES % 27.4 % (20.0-50.0); MEAN CORPUSCULAR HEMOGLOBIN 30.1 pg (28.0-32.0); MEAN CORPUSCULAR HGB CONC 33.1 g/dL (31.0-37.0); MEAN CORPUSCULAR VOLUME 90.9 fL (80.0-94.0); MEAN PLATELET VOLUME 8.5 fl (7.4-10.4); MONOCYTES % 11.1 % (2.0-8.0); NEUTROPHILS % 59.4 % (40.0-76.0); PLATELET 132 x1000/uL (130-400); RED BLOOD CELL COUNT 2.85 mill/uL (4.7-6.1); WHITE BLOOD COUNT 3.8 x1000/uL (4.5-11.0)
[2023-11-12 09:25] LABS: CHLORIDE 104 mEq/L (98-107); POTASSIUM 4.7 mEq/L (3.5-5.1); SODIUM 130 mEq/L (136-145)
[2023-11-12 09:26] LABS: CALCIUM 8.1 mg/dL (8.7-10.4); CARBON DIOXIDE 23 mEq/L (21-32)
[2023-11-12 09:31] LABS: CREATININE 0.8 mg/dL (0.6-1.3); UREA NITROGEN BLOOD 8 mg/dL (9-23)
[2023-11-12 09:37] LABS: GLUCOSE 421 mg/dL (70-105)
[2023-11-12] MEDS ORDERED: DEXTROSE 50% WATER 50ML SYRINGE IV PRN (10:15)
[2023-11-12 10:36] VITALS: BP 100/49; PULSE 75; RESP 16; TEMP 98
[2023-11-12] MEDS ORDERED: BLOOD SUGAR DIAGNOSTIC STRIP TEST SCH (13:00)
[2023-11-12] MEDS ORDERED: INSULIN LISPRO 100 UNITS/ML SUBCUT SCH (13:20)
== END 2023-11-12 10:49 | disposition home or self-care (01) ==
LOC: ER 08:53
DX: R18.8 Other ascites (principal); D64.9 Anemia, unspecified; E11.65 Type 2 diabetes mellitus with hyperglycemia; I10 Essential (primary) hypertension
CPT/HCPCS: 80048; 85025; 36415; 12011; 99283; Z7610 ×2